=== PATIENT | male | born 1975 | race Caucasian/White ===

== ENCOUNTER 2017-06-04 14:31 | Emergency (ER) | payer MEDICAID ==
[~2017-06-04] VITALS: Ht 172.7 cm; Wt 63.6 kg
[~2017-06-04 14:31] MED LIST: ATI0.5T PO; PANT-47 PO; PRED10TA PO
[2017-06-04 14:41] VITALS: BP 106/71
[2017-06-04] MEDS ORDERED: TAM75C PO (15:08)
== END 2017-06-04 15:16 | disposition home or self-care (01) ==
LOC: ER 14:32
DX: B34.9 Viral infection, unspecified (principal); G89.29 Other chronic pain; F11.10 Opioid abuse, uncomplicated; Z56.0 Unemployment, unspecified; Z79.899 Other long term (current) drug therapy
CPT/HCPCS: 99283

== ENCOUNTER 2019-07-17 09:44 | Outpatient (CLI) | payer MEDICAID | END 2019-07-17 23:59 | disposition home or self-care (01) | LOC: CARD DIAG 09:44 | PROVIDERS: ATTEND Obstetrics & Gynecology | DX: F11.20 Opioid dependence, uncomplicated (principal) | CPT/HCPCS: 93005 ==